=== PATIENT | male | born 1970 | race Caucasian/White ===

== ENCOUNTER 2016-12-30 01:16 | Emergency (ER) | payer SELFPAY ==
--- NOTE | 2016-12-30 01:36 | ER Document Report ---
ED General - General Mode of Arrival: Medic Information source: Patient, Friend - Girlfriend, Emergency Med Personnel <MEY KING - Last Filed: 12/30/16 05:56> <JACKIE VANESSA - Last Filed: 12/30/16 07:05> - General Chief Complaint: Decreased LOC Stated Complaint: HEADACHE Time Seen by Provider: 12/30/16 01:20 Notes: Patient is a 46-year-old male presented emergency department via EMS for unresponsiveness. Patient was at [employer] fishing today with his girlfriend and he also was swimming in the pool prior to fishing today. Patient's and was "seeing stars" and said he did not feel well. Patient stated that the back of his head and neck was hurting. Patient did not want to come to be evaluated and did not want to call 911. Patient and girlfriend left superior got the vehicle on the golf and started driving. Patient started passing out being unresponsive in the car so she saw an ambulance and drove to them for help. Patient was moved from the vehicle to the ambulance and initially had a pressure of 74/32 and a blood glucose level of 129. Patient complained of a headache and would not respond except to painful stimuli. Patient was given Narcan via EMS which woke him up more and the patient vomited soon after the Narcan was administered. Patient states he has had some bleeding hemorrhoids over the past couple of weeks. Patient complains of pain to his head and neck which is new today. Patient does not drink alcohol. Patient denies any chest pain or recent sickness. Patient also denies taking too much of his medications. Patient is on oxymorphone, Robaxin, gabapentin and Percocet. Patient also has a history of hypertension and diabetes mellitus. Patient states that he takes lisinopril and his primary care physician increased his dosage however he has not picked up this prescription yet and taken the higher dosage yet. (MEY KING) Past Medical History - General Information source: Patient - Social History Smoking Status: Current Every Day Smoker Frequency of alcohol use: Rare Drug Abuse: None Family History: None Patient has suicidal ideation: No Patient has homicidal ideation: No - Past Medical History Cardiac Medical History: Reports: Hx Hypertension - Lisinopril Endocrine Medical History: Reports: Hx Diabetes Mellitus Type 2 Surgical Hx: Negative <MEY KING - Last Filed: 12/30/16 05:56> Review of Systems - Review of Systems Constitutional: See HPI, Diaphoresis EENT: No symptoms reported Cardiovascular: No symptoms reported Respiratory: No symptoms reported Gastrointestinal: See HPI, Vomiting Genitourinary: No symptoms reported Male Genitourinary: No symptoms reported Musculoskeletal: See HPI, Neck pain Skin: No symptoms reported Hematologic/Lymphatic: No symptoms reported Neurological/Psychological: See HPI -: Yes All other systems reviewed and negative <MEY KING - Last Filed: 12/30/16 05:56> Physical Exam - Vital signs Interpretation: Hypotensive - 74/32 with EMS <MEY KING - Last Filed: 12/30/16 05:56> - General In distress: Mild - HEENT Head: Normocephalic, Atraumatic Eyes: Normal Pupils: PERRL - Respiratory Respiratory status: No respiratory distress Chest status: Nontender Breath sounds: Normal Chest palpation: Normal - Cardiovascular Rhythm: Regular Heart sounds: Normal auscultation Murmur: No - Abdominal Inspection: Normal Distension: No distension Bowel sounds: Normal Tenderness: Nontender Organomegaly: No organomegaly - Back Back: Normal, Nontender - Extremities General upper extremity: Normal inspection, Nontender, Normal color, Normal ROM , Normal temperature General lower extremity: Normal inspection, Nontender, Normal color, Normal ROM , Normal temperature, Normal weight bearing. No: Ryan's sign - Neurological Neuro grossly intact: Yes Cognition: Normal Orientation: AAOx4 Manjeet Coma Scale Eye Opening: Spontaneous Manjeet Coma Scale Verbal: Oriented Manjeet Coma Scale Motor: Obeys Commands Manjeet Coma Scale Total: 15 Speech: Normal Motor strength normal: LUE, RUE, LLE, RLE Sensory: Normal - Skin Skin Temperature: Cool Skin Moisture: Diaphoretic Skin Color: Normal <JACKIE VANESSA - Last Filed: 12/30/16 07:05> - Vital signs Vitals: Pulse BP 96 120/50 L 12/30/16 05:58 12/30/16 05:58 - General Notes: Drowsy but arousable (JACKIE VANESSA) Course - Laboratory Result Diagrams: 12/30/16 01:38 12/30/16 01:38 - Consults Dr. Castro Time consulted: 04:50 <MEY KING - Last Filed: 12/30/16 05:56> - Laboratory Result Diagrams: 12/30/16 01:38 12/30/16 01:38 <JACKIE VANESSA - Last Filed: 12/30/16 07:05> - Re-evaluation Re-evalutation: 12/30/16 07:03 Patient is a 46-year-old male who presented with hypotension. Patient had apparently had an episode where he was diaphoretic, hypotensive and altered. Patient improved after Narcan with EMS. Patient was given fluids and Narcan here. Patient's initial lactic acid was 3.3 but it is down to 1.2. There is no evidence for infection or bleeding. Patient was discussed with the hospitalist service. Dr. Castro recommended giving more Narcan and fluids. The patient has felt better with this. Patient is still hypotensive but he is not orthostatic at this time. It is recommended that the patient decrease his oral pain medication intake to half at this time. He is to follow-up with his doctor on Monday. Patient is also to hold his hypertension medication at this time because he is already hypotensive. Patient has no complaints. No acute findings on blood work or imaging. Patient will be discharged home. Agrees with this plan. (JACKIE VANESSA) - Vital Signs Vital signs: Temp Pulse Resp BP Pulse Ox 96 120/50 L 12/30/16 05:58 12/30/16 05:58 - Laboratory Laboratory results interpreted by me: 12/30/16 12/30/16 12/30/16 01:38 01:38 01:38 WBC 14.5 H RDW 14.5 H Absolute Neutrophils 10.6 H Creatinine 2.03 H Est GFR ( Amer) 43 L Est GFR (Non-Af Amer) 36 L Glucose 148 H Lactic Acid 3.3 H Calcium 10.5 H Direct Bilirubin 0.5 H Creatine Kinase 174 H Urine Protein 12/30/16 04:47 WBC RDW Absolute Neutrophils Creatinine Est GFR ( Amer) Est GFR (Non-Af Amer) Glucose Lactic Acid Calcium Direct Bilirubin Creatine Kinase Urine Protein 30 H - Consults Dr. Castro Reason for consultation: 12/30/16 04:[address] Castro who admits the patient. (MEY KING) Discharge <MEY KING - Last Filed: 12/30/16 05:56> <JACKIE VANESSA - Last Filed: 12/30/16 07:05> - Discharge Clinical Impression: Hypotensive episode Opiate or related narcotic overdose Qualifiers: Encounter type: initial encounter Injury intent: accidental or unintentional Qualified Code(s): T40.601A - Poisoning by unspecified narcotics, accidental ( unintentional), initial encounter Condition: Stable Disposition: HOME, SELF-CARE Instructions: Hypotension ([facility]), Instructions for Home Care Following a Drug Overdose ([facility]) Additional Instructions: Please decrease your pain medication. Please take half of your regular dose. Please do not take your blood pressure medicine at this time. Please return if you have any worsening or concerning symptoms. Scribe Attestation: 12/30/16 07:05 I personally performed the services described in the documentation, reviewed and edited the documentation which was dictated to the scribe in my presence, and it accurately records my words and actions. (JACKIE VANESSA) Scribe Documentation - Scribe Written by Angelia:: Angelia Ruiz, 12/30/2016 530 acting as scribe for :: Rakel <MEY KING - Last Filed: 12/30/16 05:56>
[2016-12-30 01:49] LABS: VENOUS BLOOD BASE EXCESS 0.4 mmol/L; VENOUS BLOOD HCO3 26.9 mmol/L (20-32); VENOUS BLOOD PCO2 50.7 mmHg (35-63); VENOUS BLOOD PH 7.34 (7.30-7.42)
[2016-12-30 02:02] LABS: ABSOLUTE BASOPHILS # (AUTO) 0.1 10^3/uL (0.0-0.2); ABSOLUTE EOSINOPHILS # (AUTO) 0.3 10^3/uL (0.0-0.6); ABSOLUTE LYMPHOCYTES (AUTO) 2.5 10^3/uL (0.5-4.7); ABSOLUTE NEUT (AUTO) 10.6 10^3/uL (1.7-8.2); BASOPHILS % (AUTO) 0.4 % (0-2); EOSINOPHILS % (AUTO) 2.1 % (0-6); HEMATOCRIT 43.4 % (37.9-51.0); HEMOGLOBIN 14.4 g/dL (13.5-17.0); HGB HCT DIFFERENCE -0.2; LYMPHOCYTES % (AUTO) 17.5 % (13-45); MEAN CORPUSCULAR HEMOGLOBIN 28.4 pg (27.0-33.4); MEAN CORPUSCULAR HGB CONC 33.1 g/dL (32.0-36.0); MEAN CORPUSCULAR VOLUME 86 fl (80-97); MONOCYTES % (AUTO) 6.8 % (3-13); RED BLOOD COUNT 5.06 10^6/uL (4.35-5.55); RED CELL DISTRIBUTION WIDTH 14.5 % (11.5-14.0); SEGMENTED NEUTROPHILS % (AUTO) 73.2 % (42-78); WHITE BLOOD COUNT 14.5 10^3/uL (4.0-10.5)
[2016-12-30 02:07] LABS: ALANINE AMINOTRANSFERASE 47 U/L (21-72); ALBUMIN 4.5 g/dL (3.5-5.0); ALKALINE PHOSPHATASE 88 U/L (38-126); ANION GAP 15 (5-19); ASPARTATE AMINO TRANSFERASE 27 U/L (17-59); BILIRUBIN,DIRECT 0.5 mg/dL (0.0-0.4); BILIRUBIN,TOTAL 0.5 mg/dL (0.2-1.3); BLOOD UREA NITROGEN 16 mg/dL (7-20); CALCIUM 10.5 mg/dL (8.4-10.2); CARBON DIOXIDE 23 mmol/L (22-30); CHLORIDE 104 mmol/L (98-107); CREATINE KINASE 174 U/L (55-170); CREATININE RESULT 2.03 mg/dL (0.52-1.25); GLUCOSE 148 mg/dL (75-110); POTASSIUM 3.8 mmol/L (3.6-5.0); SODIUM 142.4 mmol/L (137-145); TOTAL PROTEIN 7.7 g/dL (6.3-8.2)
[2016-12-30 02:13] LABS: PROTHROMBIN TIME 12.6 SEC (11.4-15.4)
[2016-12-30 02:21] LABS: CREATINE KINASE MB 1.11 ng/mL (<4.55)
[2016-12-30 02:22] LABS: TROPONIN I < 0.012 ng/mL
--- NOTE | 2016-12-30 03:34 | RADIOLOGY REPORT (SQ) ---
EXAM DESCRIPTION: CT HEAD WITHOUT COMPLETED DATE/TIME: 12/30/2016 3:24 am REASON FOR STUDY: headache, fall COMPARISON: None. TECHNIQUE: Axial images acquired through the brain without intravenous contrast. Images reviewed wi th bone, brain and subdural windows. Images stored on PACS. All CT scanners at this facility use dose modulation, iterative reconstruction, and/or weight based d osing when appropriate to reduce radiation dose to as low as reasonably achievable (ALARA). [facility]: Dose Right [facility]: CareDose [facility]: Dose Right [facility]: Teradose 4D [facility]: Smart [employer] RADIATION DOSE: Up-to-date CT equipment and radiation dose reduction techniques were employed. CTDIv ol: 64.6 - 67.0 mGy. DLP: 2479 mGy-cm. mGy. LIMITATIONS: None. FINDINGS: VENTRICLES: Normal size and contour. CEREBRUM: No masses. No hemorrhage. No midline shift. Normal hernandez/white matter differentiation. N o evidence for acute infarction. CEREBELLUM: No masses. No hemorrhage. No alteration of density. No evidence for acute infarction. EXTRAAXIAL SPACES: No fluid collections. No masses. ORBITS AND GLOBE: No intra- or extraconal masses. Normal contour of globe without masses. CALVARIUM: No fracture. PARANASAL SINUSES: No fluid or mucosal thickening. 0.7 cm frontal osteoma. SOFT TISSUES: No mass or hematoma. OTHER: No other significant finding. IMPRESSION: No acute findings. TECHNICAL DOCUMENTATION: JOB ID: [id number] Quality ID # [id number]: Final reports with documentation of one or more dose reduction techniques (e.g., Au tomated exposure control, adjustment of the mA and/or kV according to patient size, use of iterative reconstruction technique) 2010 [id number]- All Rights Reserved
--- NOTE | 2016-12-30 03:40 | RADIOLOGY REPORT (SQ) ---
EXAM DESCRIPTION: CT CERVICAL SPINE WITHOUT COMPLETED DATE/TIME: 12/30/2016 3:24 am REASON FOR STUDY: neck pain, fall COMPARISON: None. TECHNIQUE: Axial images acquired through the cervical spine without intravenous contrast. Images re viewed with lung, soft tissue and bone windows. Reconstructed coronal and sagittal MPR images review ed. Images stored on PACS. All CT scanners at this facility use dose modulation, iterative reconstruction, and/or weight based d osing when appropriate to reduce radiation dose to as low as reasonably achievable (ALARA). [facility]: Dose Right [facility]: CareDose [facility]: Dose Right [facility]: Teradose 4D [facility]: Smart [employer] RADIATION DOSE: Up-to-date CT equipment and radiation dose reduction techniques were employed. CTDIv ol: 19.0 mGy. DLP: 406 mGy-cm. mGy. LIMITATIONS: None. FINDINGS: ALIGNMENT: Anatomic. Mild dextro convexity. MINERALIZATION: Normal. VERTEBRAL BODIES: No fractures or dislocation. DISCS: No significant disc disease. FACETS, LATERAL MASSES, POSTERIOR ELEMENTS: 1.2 cm diameter chronic enlargement of the left C4 transv erse foramen may indicate chronic enlargement or tortuosity of the left vertebral artery. HARDWARE: None in the spine. VISUALIZED RIBS: No fractures. LUNG APICES AND SOFT TISSUES: No significant or acute findings. OTHER: No other significant finding. IMPRESSION: 1. There is 1.2 cm diameter chronic enlargement of the left C4 transverse foramen which may indicate chronic enlargement or tortuosity of the left vertebral artery. Contrast CTA/MRA evalu ation of the neck recommended. 2. No acute findings. TECHNICAL DOCUMENTATION: JOB ID: [id number] Quality ID # [id number]: Final reports with documentation of one or more dose reduction techniques (e.g., Au tomated exposure control, adjustment of the mA and/or kV according to patient size, use of iterative reconstruction technique) 2010 [email or web address]- All Rights Reserved
--- NOTE | 2016-12-30 03:42 | RADIOLOGY REPORT (SQ) ---
EXAM DESCRIPTION: CT CHEST WITHOUT COMPLETED DATE/TIME: 12/30/2016 3:24 am REASON FOR STUDY: evaluate aorta, hypotension COMPARISON: None. TECHNIQUE: CT scan performed of the chest without intravenous contrast. Images reviewed with lung, soft tissue and bone windows. Reconstructed coronal and sagittal MPR images reviewed. All images st ored on PACS. All CT scanners at this facility use dose modulation, iterative reconstruction, and/or weight based d osing when appropriate to reduce radiation dose to as low as reasonably achievable (ALARA). [facility]: Dose Right [facility]: CareDose [facility]: Dose Right [facility]: Teradose 4D [facility]: Smart [employer] RADIATION DOSE: Up-to-date CT equipment and radiation dose reduction techniques were employed. CTDIv ol: 30.0 mGy. DLP: 2407 mGy-cm. mGy. LIMITATIONS: No technical limitations. FINDINGS: LUNGS AND PLEURA: No masses, infiltrates, pneumothorax. No pleural effusions, calcificati ons. HILAR AND MEDIASTINAL STRUCTURES: No identified masses or abnormal nodes. No obvious aneurysm. HEART AND VASCULAR STRUCTURES: No aneurysm. No pericardial effusion. UPPER ABDOMEN: See separate report of the CT of the abdomen. THYROID AND OTHER SOFT TISSUES: No masses. No adenopathy. BONES: No significant finding. HARDWARE: None in the chest. OTHER: No other significant findings. IMPRESSION: NO SIGNIFICANT FINDING ON NON-CONTRASTED CHEST CT. TECHNICAL DOCUMENTATION: JOB ID: [id number] Quality ID # [id number]: Final reports with documentation of one or more dose reduction techniques (e.g., Au tomated exposure control, adjustment of the mA and/or kV according to patient size, use of iterative reconstruction technique) 2010 [employer]- All Rights Reserved
--- NOTE | 2016-12-30 03:49 | RADIOLOGY REPORT (SQ) ---
EXAM DESCRIPTION: CT ABD/PELVIS NO ORAL OR IV COMPLETED DATE/TIME: 12/30/2016 3:24 am REASON FOR STUDY: evaluate aorta, hypotension COMPARISON: None. TECHNIQUE: CT scan of the abdomen and pelvis performed without intravenous or oral contrast. Images reviewed with lung, soft tissue, and bone windows. Reconstructed coronal and sagittal MPR images revi ewed. All images stored on PACS. All CT scanners at this facility use dose modulation, iterative reconstruction, and/or weight based d osing when appropriate to reduce radiation dose to as low as reasonably achievable (ALARA). [facility]: Dose Right [facility]: CareDose [facility]: Dose Right [facility]: Teradose 4D [facility]: [employer] RADIATION DOSE: 2407 LIMITATIONS: None. FINDINGS: LOWER CHEST: See separate report of the CT of the chest. NON-CONTRASTED LIVER, SPLEEN, ADRENALS: Evaluation limited by lack of IV contrast. No identified sign ificant masses. PANCREAS: No masses. No peripancreatic inflammatory changes. GALLBLADDER: No identified stones by CT criteria. No inflammatory changes to suggest cholecystitis. RIGHT KIDNEY AND URETER: No suspicious masses. Assessment limited by lack of IV contrast. No signif icant calcifications. No hydronephrosis or hydroureter. 1.3 cm likely benign cyst not definitively characterized. LEFT KIDNEY AND URETER: No suspicious masses. Assessment limited by lack of IV contrast. No signifi cant calcifications. No hydronephrosis or hydroureter. Likely benign 2.[address] density o f 3 Hounsfield units not definitively characterized. AORTA AND RETROPERITONEUM: No aneurysm. No retroperitoneal masses or adenopathy. BOWEL AND PERITONEAL CAVITY: No obvious masses or inflammatory changes. No free fluid. APPENDIX: Normal. PELVIS, BLADDER, AND ABDOMINAL WALL:No abnormal masses. No free fluid. Bladder normal. BONES: Moderate -large L5-S1 disc bulge -osteophyte complex with moderate bilateral L5 foraminal sten oses. OTHER: No other significant finding. IMPRESSION: NO SIGNIFICANT OR ACUTE PROCESS IN THE ABDOMEN OR PELVIS. TECHNICAL DOCUMENTATION: JOB ID: [id number] Quality ID # [id number]: Final reports with documentation of one or more dose reduction techniques (e.g., Au tomated exposure control, adjustment of the mA and/or kV according to patient size, use of iterative reconstruction technique) 2010 [employer]- All Rights Reserved
[2016-12-30] MEDS ORDERED: NORMAL SALINE 1000 ML 1,000 ML IV ONE ×3 (03:55→05:57)
[2016-12-30] MEDS ORDERED: NALOXONE HCL INJ/PF 0.4 MG/1 ML SDV IV ONE (04:42)
[2016-12-30 05:24] LABS: APPEARANCE,URINE SLIGHTLY-CLOUDY; BILIRUBIN,URINE NEGATIVE (NEGATIVE); GLUCOSE, URINE NEGATIVE (NEGATIVE); KETONES,URINE NEGATIVE (NEGATIVE); LEUKOCYTE ESTERASE,URINE NEGATIVE (NEGATIVE); NITRITE,URINE NEGATIVE (NEGATIVE); PROTEIN,URINE 30 mg/dL (NEGATIVE); URINE SPECIFIC GRAVITY 1.019; UROBILINOGEN,URINE NEGATIVE mg/dL (<2.0)
[2016-12-30] MEDS ORDERED: NALOXONE HCL INJ 2 MG/2 ML DISP.SYRIN IV ONE (05:56)
[2016-12-30 07:17] VITALS: BP 118/99
--- NOTE | 2016-12-30 08:05 | EKG REPORT ---
SEVERITY:- NORMAL ECG - SINUS RHYTHM : Confirmed by: Vincent Constantino MD 30-Dec-2016 08:05:22
== END 2016-12-30 07:17 | disposition home or self-care (01) ==
LOC: ER 01:16
DX: T40.601A Poisoning by unspecified narcotics, accidental (unintentional), initial encounter (principal); I95.9 Hypotension, unspecified; R55 Syncope and collapse; R51 Headache; F17.200 Nicotine dependence, unspecified, uncomplicated
CPT/HCPCS: 93005; 96376; 99285; 96361; 96374; 36415; 87040; 87086; 82553; 82550; 85025; 85610; 80053; 81001; 84484; 82803; 83605; 70450; 71250; 72125; 74176; 93010; J2310 ×2; J7030